=== PATIENT | male | born 1970 | race Caucasian/White ===

== ENCOUNTER → 2019-04-26 14:50 | Outpatient (BNVA) | payer OTHER, SELFPAY | PROVIDERS: Family Provider Internal Medicine; PCP Internal Medicine; Visit Provider Nurse Practitioner | DX: R05 Cough (principal); R50.9 Fever, unspecified | CPT/HCPCS: 87804 ==

== ENCOUNTER 2019-05-15 13:37 | Emergency (ER) | payer OTHER, SELFPAY ==
[2019-05-15 13:37] VITALS: PULSE 73; RESP 17; O2SAT 96
[2019-05-15 13:42] VITALS: BP 140/97; PULSE 73; RESP 18; TEMP 36.6; O2SAT 96; BMI 26.9
--- NOTE | 2019-05-15 13:53 | ED_ITS ---
Entered by Brie Mckeon, acting as scribe for Rohith Branham DO HPI - Back Pain/Injury General: Chief Complaint: Back Pain/Injury Stated Complaint: Back pain Time Seen by Provider: 05/15/19 13:44 History of Present Illness: HPI Narrative: 48yo male presents with back pain. He denies any loss of bowel or bladder, numbness, or weakness. Back pain was exacerbated when he bent over to waste picker a box. Associated symptoms: Deny abdominal pain, chills, dysuria, fatigue, fever(s), nausea, urinary urgency or vomiting Review of Systems Const: Denies: fever, chills, body aches, change in appetite, fatigue or malaise ENMT: Denies: throat pain, ear pain, nasal discharge or nasal congestion Card: Denies: chest pain, edema, shortness of breath on exertion or shortness of breath when lying down Resp: Denies: shortness of breath, productive cough or non-productive cough GI: Denies: abdominal pain, nausea, vomiting, vomiting blood, coffee grounds in vomit, diarrhea, constipation, bloating, blood in stool or black tarry stool : Denies: flank pain, painful urination, urinary frequency or urinary urgency Musc: Reports: back pain Skin/Breast: Denies: rash or itching PFSH ED PFSH: Social History (Updated 04/26/19 @ 14:49 by Bhavani Adams LPN) Smoking and tobacco status: never smoked Physical Exam Const: COMMON NORMALS: oriented x3 and alert GENERAL APPEARANCE: cooperative and comfortable NUTRITIONAL APPEARANCE: obese ORIENTATION/CONSCIOUSNESS: Yes awake, Yes oriented to person and Yes oriented to place Eye: COMMON NORMALS: PERRL, EOMs intact bilaterally, conjunctivae normal and no scleral icterus CONJUNCTIVA: Yes conjunctivae normal PUPIL: Yes PERRL Neck/C-Spine: COMMON NORMALS: full ROM, no lymphadenopathy, supple, no meningeal signs and thyroid normal THYROID: thyroid normal and asymmetrical Lymph: LYMPHATIC: no lymphadenopathy noted Resp: COMMON NORMALS: normal respiratory effort, no retractions, no use of accessory muscles and clear to auscultation bilaterally AUSCULTATION: clear to auscultation bilaterally Cardio: COMMON NORMALS: regular rate and regular rhythm RATE: regular rate RHYTHM: regular rhythm HEART SOUNDS: no murmurs GI: COMMON NORMALS: normal to inspection, nondistended, normoactive bowel sounds, soft to palpation and no hepatosplenomegaly PALPATION: Yes soft and Yes no hepatosplenomegaly : COMMON NORMALS: Yes no CVA tenderness BLADDER/KIDNEY EXAM: Yes no CVA tenderness Back/Pelvis: COMMON NORMALS: no CVA tenderness LUMBAR SPINE/LOWER BACK: Yes normal to inspection Extremity: COMMON NORMALS: no clubbing, cyanosis or edema, no calf tenderness and no pedal edema NARRATIVE EXTREMITY EXAM: negative straight leg raise Neuro: COMMON NORMALS: oriented x3 SENSORIUM/ORIENTATION: Yes alert, Yes oriented to person and Yes oriented to place MENINGEAL SIGNS: Yes no meningeal signs Skin: COMMON NORMALS: no rashes or lesions noted and skin turgor normal GENERAL SKIN EXAM: no rashes or lesions noted and turgor normal Course Vital Signs: Vital signs: Vital Signs Temperature 97.9 F 05/15/19 13:42 Pulse Rate 72 05/15/19 14:43 Respiratory Rate 16 05/15/19 14:43 Blood Pressure 130/84 05/15/19 14:43 Pulse Oximetry 96 05/15/19 14:43 Discharge Plan Discharge Patient Disposition: Home, Self-Care Clinical Impression: Acute lumbar back pain Condition: Stable Prescriptions: New diclofenac sodium 75 mg tablet,delayed release (DR/EC) 75 mg PO Q12H PRN (Reason: pain) Qty: 30 RF: 0 Skelaxin 800 mg tablet 800 mg PO TID PRN (Reason: muscle pain) Qty: 20 RF: 0 No Action omeprazole 20 mg capsule,delayed release(DR/EC) 20 mg PO DAILY RF: 0 alogliptin 12.5 mg tablet 12.5 mg PO DAILY RF: 0 Discharge Orders: Discharge Order (Routine); Ordered 05/15/19 Ordered By: Rohith Branham Referrals: Juni Mccarthy [Primary Care Provider] - Discharge Diet: Usual diet Discharge Activity: Increase activity as tolerated Activity Restrictions/Additional Instructions: Increase activity slowly. Follow-up with your primary care doctor if persists Discharge Date/Time: 05/15/19 14:49 Coding Level of Care Code ED Terrazzo Polisher for Chg Fwd Exam Comprehensive The documentation recorded by the Linda ridley Bailey Leadawn, accurately reflects the service I personally performed and the decisions made by Carrol carlos Curtis L, DO May 15, 2019 13:37
[2019-05-15] MEDS: ketorolac 60 mg/2 mL INJ IM (14:25)
[2019-05-15] MEDS: orphenadrine 30 mg/mL Inj 2 mL 60 MG IM (14:26)
[2019-05-15 14:43] VITALS: BP 130/84; PULSE 72; RESP 16; O2SAT 96
== END 2019-05-15 14:49 | disposition home or self-care (01) ==
LOC: ER 14:24
PROVIDERS: Emergency Provider Family Medicine; Family Provider Internal Medicine; PCP Internal Medicine
DX: M54.5 Low back pain (principal); E66.9 Obesity, unspecified; Z68.27 Body mass index [BMI] 27.0-27.9, adult
CPT/HCPCS: 96372; 99281; 99283; J1885; J2360

== ENCOUNTER 2022-07-02 10:08 | Emergency (ER) | payer OTHER, SELFPAY ==
[2022-07-02 10:24] VITALS: BP 171/94; PULSE 73; RESP 16; TEMP 36.6; O2SAT 99
--- NOTE | 2022-07-02 10:26 | ECG_ITS ---
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 Measurements Intervals [place] Rate: 67 P: 46 [place]: 156 QRS: 53 QRSD: 85 T: 79 QT: 371 QTc: 392 Interpretive Statements SINUS RHYTHM NONSPECIFIC T-WAVE ABNORMALITY INTERPRETATION BASED ON A DEFAULT AGE OF 40 YEARS No previous ECG available for comparison Electronically Signed On 07-02-2022 23:40:07 CDT by Tyree Villareal M.D. [id number]
--- NOTE | 2022-07-02 10:58 | XR_ITS ---
WS: [id number] EXAMINATION: XR chest 1V portable [id number] REASON FOR EXAM: chest pain COMPARISON: None available. ORDER DATE: 07/02/2022 11:00 AM TECHNIQUE: A single, portable frontal chest x-ray was obtained. X-RAY FINDINGS: The lungs are clear. Pleural spaces are clear. No pleural effusions or pneumothorax. Cardiomediastinal silhouette is normal. No evidence for pulmonary edema. Soft tissue and osseous structures are unremarkable. No tubes or lines are present. XR/XR chest 1V portable [id number] IMPRESSION: Unremarkable frontal portable chest x-ray.
--- NOTE | 2022-07-02 11:10 | W.ED.CHESTPA ---
HPI - Chest Pain General: Chief Complaint: Chest Pain Stated Complaint: Chest Pains, SOB, Fatigue Time Seen by Provider: 07/02/22 10:58 History of Present Illness: Patient presents to the ER with complaints of a nonradiating left-sided/substernal chest pressure starting about 5 days ago. Pain is intermittent in nature. Patient might have a mild increase in shortness of breath when the pain is there. There is nothing that makes the pain worse or better. Patient states he has had not had this pain before. Patient is a diabetic. Patient states he has no cardiac history. MD complaint: chest heaviness and chest discomfort Pertinent past history: other (Diabetes) Onset (ago): day(s) (5 days ago) Prior episodes: No Pain location: substernal and left chest Pain radiation: none Severity: mild Quality: aching and heaviness Relieving factors: nothing Exacerbating factors: nothing Associated symptoms: Reports dyspnea; Deny abdominal pain, fever(s), nausea, palpitations or vomiting Treatment prior to arrival: none Review of Systems General: Reports: 10 or more systems reviewed and unremarkable except in HPI and below Const: Denies: fever(s) or chills Eyes: Denies: change in vision ENMT: Denies: throat pain or odynophagia Card: Reports: chest pain; Denies: palpitations, irregular heart rhythm or edema Resp: Reports: dyspnea; Denies: productive cough or non-productive cough GI: Denies: abdominal pain, nausea, vomiting or diarrhea : Denies: flank pain or dysuria Musc: Denies: neck pain, back pain, extremity pain or extremity swelling [facility] ED PFSH: Medical History Lumbar back pain with radiculopathy affecting right lower extremity Social History Smoking and tobacco status: never smoked Physical Exam Const: COMMON NORMALS: no acute distress, average body habitus, patient oriented x3, no limitations, healthy appearing, alert and well nourished HENMT: COMMON NORMALS: normocephalic, atraumatic, hearing grossly normal bilaterally, external ears normal, Normal external nose present and moist oral mucous membranes HEAD & SCALP: normocephalic and atraumatic NOSE: Normal external nose present EXTERNAL EAR: Yes external ears normal Eye: COMMON NORMALS: Equal, round and reactive pupils present, EOMs intact bilaterally, conjunctivae normal and no scleral icterus CONJUNCTIVA: Yes conjunctivae normal PUPIL: Yes Equal, round and reactive pupils present Neck/C-Spine: COMMON NORMALS: full ROM, no lymphadenopathy, supple, no meningeal signs, no JVD and Thyroid normal THYROID: Thyroid normal Lymph: LYMPHATIC: no lymphadenopathy noted Chest: COMMONS NORMALS: normal inspection of the chest and normal palpation of entire chest wall Resp: COMMON NORMALS: normal respiratory effort, No retractions, No use of accessory muscles and clear to auscultation bilaterally AUSCULTATION: clear to auscultation bilaterally Cardio: COMMON NORMALS: no JVD, regular rhythm, S1 normal heart sound present, S2 normal heart sound present, No gallops present (Cardio), No clicks present (Cardio) and No murmurs present (Cardio) RHYTHM: regular rhythm HEART SOUNDS: S1 normal heart sound present and S2 normal heart sound present GI: COMMON NORMALS: Normal to inspection, nondistended, normoactive bowel sounds present, Soft to palpation, non-tender, No hepatosplenomegaly present and no masses PALPATION: Yes Soft to palpation and Yes No hepatosplenomegaly present Extremity: COMMON NORMALS: normal to inspection Neuro: COMMON NORMALS: patient oriented x3 SENSORIUM/ORIENTATION: Yes alert MENINGEAL SIGNS: Yes no meningeal signs Course Vital Signs: Vital signs: Vital Signs Temperature 97.9 F 07/02/22 10:24 Pulse Rate 73 07/02/22 10:24 Respiratory Rate 17 07/02/22 13:56 Blood Pressure 171/94 07/02/22 10:24 Pulse Oximetry 96 07/02/22 13:56 Oxygen Delivery Me thod 07/02/22 13:56 MDM - Chest Pain Medical Decision Making Patient presents to the ER with complaints of nonradiating substernal, left-sided chest pain that is intermittent over the last 5 days. Patient complains of intermittent shortness of breath when the pain is present. Patient states that there is nothing that brings it on or makes it go away. Patient is a diabetic. Patient has no heart history. Upon further physical exam of the patient as well as review of lab work which included CBC CMP cardiac enzymes EKG and chest x-ray is felt this is noncardiac in nature due to benign appearing EKG and 2 sets of cardiac troponins with a negative delta. Patient is not currently having chest pain in the ER. Patient will be referred back to his family practice physician who may do further evaluation treatment that may consist of cardiac stress test and/or referral to a public address system installer. Differential Diagnosis Unlikely acute massive pulmonary embolism, acute respiratory failure, acute myocardial infarction, cardiac arrest or sudden cardiac Medical Records I reviewed the patient's medical records. Lab Data I reviewed the patient's lab results. 07/02/22 11:20 07/02/22 11:20 Radiology Impressions Chest X-Ray 07/02/22 10:58 IMPRESSION: Unremarkable frontal portable chest x-ray. Laboratory Results WBC 6.7 10^3/uL (4.0-10.0) 07/02/22 11:20 RBC 5.47 10^6/uL (4.1-5.3) H 07/02/22 11:20 Hgb 16.3 g/dL (11.7-16.6) 07/02/22 11:20 Hct 47.3 % (42.0-52.0) 07/02/22 11:20 MCV 86.5 fl (80-94) 07/02/22 11:20 MCH 29.8 pg (28.0-34.0) 07/02/22 11:20 MCHC 34.5 g/dL (30.0-36.0) 07/02/22 11:20 RDW 11.8 % (12.1-15.1) L 07/02/22 11:20 Plt Count 238 10^3/cmm (130-400) 07/02/22 11:20 MPV 9.4 fL (7.4-10.4) 07/02/22 11:20 Neut % (Auto) 64.1 % 07/02/22 11:20 Lymph % (Auto) 25.0 % 07/02/22 11:20 Barnes % (Auto) 7.7 % 07/02/22 11:20 Eos % (Auto) 2.4 % 07/02/22 11:20 Baso % (Auto) 0.5 % 07/02/22 11:20 Neut # (Auto) 4.27 10^3/uL (1.8-7.7) 07/02/22 11:20 Lymph # (Auto) 1.7 10^3/uL (0.8-4.8) 07/02/22 11:20 Barnes # (Auto) 0.5 10^3/uL (0.2-0.9) 07/02/22 11:20 Eos # (Auto) 0.2 10^3/uL (0.0-0.8) 07/02/22 11:20 Baso # (Auto) 0.0 10^3/uL (0.0-0.1) 07/02/22 11:20 Nucleated RBC % (auto) 0 % 07/02/22 11:20 Nucleated RBCs # 0.0 /100WBC 07/02/22 11:20 PT 12.60 SECONDS (12.1-14.9) 07/02/22 11:20 INR 0.92 (0.8-1.2) 07/02/22 11:20 Sodium 139 mmol/L (136-145) 07/02/22 11:20 Potassium 4.1 mmol/L (3.5-5.1) 07/02/22 11:20 Chloride 100 mmol/L (98-107) 07/02/22 11:20 Carbon Dioxide 26 mmol/L (22-29) 07/02/22 11:20 Anion Gap 17.1 (5-19) 07/02/22 11:20 BUN 12 mg/dL (6-20) 07/02/22 11:20 Creatinine 0.8 mg/dL (0.7-1.2) 07/02/22 11:20 GFR Calculation 102.3 mL/min (90-130) 07/02/22 11:20 Glucose 173 mg/dL (65-115) H 07/02/22 11:20 Calculated Osmolality 292 mOsm/kg (285-295) 07/02/22 11:20 Calcium 9.2 mg/dL (8.5-10.5) 07/02/22 11:20 Total Bilirubin 1.2 mg/dL (0.15-1.2) 07/02/22 11:20 AST 26 U/L (0-40) 07/02/22 11:20 ALT 31 U/L (0-41) 07/02/22 11:20 Alkaline Phosphatase 79 U/L (40-130) 07/02/22 11:20 Troponin T Baseline 10 ng/L (0-15) 07/02/22 11:20 Troponin T 120 Minute 9.88 ng/L (0-15) 07/02/22 13:20 Delta Troponin T -0.12 ABS# (0-10) L 07/02/22 13:20 NT-Pro-B Natriuret Pep 36 pg/mL (0-125) 07/02/22 11:20 Total Protein 7.2 g/dL (6.6-8.7) 07/02/22 11:20 Albumin 4.3 g/dL (3.5-5.2) 07/02/22 11:20 Globulin 2.9 g/dL (1.3-4.6) 07/02/22 11:20 EKG Data EKG 1: I personally reviewed and interpreted this EKG as follows: EKG interpretation date: 07/02/22 EKG interpretation time: 13:15 Prior EKG tracings: not available for review Interpretation: EKG showed ventricular rate of 61 bpm, normal sinus rhythm, DE interval 160, QRS duration 90, QTc of 390, possible right ventricular conduction delay, nonspecific ST-T wave abnormalities. Discharge Plan Discharge Patient Disposition: Home Clinical Impression: Atypical chest pain Condition: Stable Prescriptions: No Action omeprazole 20 mg capsule,delayed release(DR/EC) 20 mg PO DAILY alogliptin 12.5 mg tablet 12.5 mg PO DAILY pravastatin PO DAILY methocarbamol 500 mg tablet 500 mg PO TID PRN (Reason: muscle spasm) Qty: 30 1RF tramadol 50 mg tablet 50 mg PO TID PRN (Reason: pain) Qty: 30 0RF Discharge Orders: Discharge ED (Routine); Ordered 07/02/22 Ordered By: Capo Alegria Referrals: Nallely Farah MD [Primary Care Provider] - 1 week Patient Instructions: Chest Pain (ED) Coding Level of Care Code ED Green House Manager for Chg Herve
[2022-07-02 11:28] LABS: Basophils % 0.5 %; Eosinophils # 0.2 10^3/uL (0.0-0.8); Eosinophils % 2.4 %; Hematocrit 47.3 % (42.0-52.0); Hemoglobin 16.3 g/dL (11.7-16.6); Lymphocytes # 1.7 10^3/uL (0.8-4.8); Mean Corpuscular HGB Conc 34.5 g/dL (30.0-36.0); Mean Corpuscular Hemoglobin 29.8 pg (28.0-34.0); Mean Corpuscular Volume 86.5 fl (80-94); Mean Platelet Volume 9.4 fL (7.4-10.4); Monocytes # 0.5 10^3/uL (0.2-0.9); Monocytes % 7.7 %; Neutrophils # 4.27 10^3/uL (1.8-7.7); Neutrophils % 64.1 %; Nucleated Red Blood Cells % 0 %; Platelet Count 238 10^3/cmm (130-400); Red Blood Count 5.47 10^6/uL (4.1-5.3); Red Cell Distribution Width 11.8 % (12.1-15.1); White Blood Count 6.7 10^3/uL (4.0-10.0)
[2022-07-02 11:47] LABS: INR 0.92 (0.8-1.2)
[2022-07-02 11:57] LABS: Troponin(5th) Baseline 10 ng/L (0-15)
[2022-07-02 12:07] LABS: Alanine Aminotransferase 31 U/L (0-41); Albumin Level 4.3 g/dL (3.5-5.2); Alkaline Phosphatase 79 U/L (40-130); Anion Gap 17.1 (5-19); Aspartate Amino Transferase 26 U/L (0-40); Blood Urea Nitrogen 12 mg/dL (6-20); Calcium 9.2 mg/dL (8.5-10.5); Carbon Dioxide 26 mmol/L (22-29); Chloride 100 mmol/L (98-107); Creatinine Clr Calc Pharmacy 122.3019; Globulin 2.9 g/dL (1.3-4.6); Glomerular Filtration Rate 102.3 mL/min (90-130); Glucose 173 mg/dL (65-115); NT Pro B Type Natriuretic Pept 36 pg/mL (0-125); Osmolality Calculated 292 mOsm/kg (285-295); Potassium 4.1 mmol/L (3.5-5.1); Sodium 139 mmol/L (136-145); Total Bilirubin 1.2 mg/dL (0.15-1.2); Total Protein 7.2 g/dL (6.6-8.7)
--- NOTE | 2022-07-02 13:15 | ECG_ITS ---
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 Measurements Intervals [place] Rate: 61 P: 24 [place]: 160 QRS: 28 QRSD: 90 T: 79 QT: 386 QTc: 391 Interpretive Statements SINUS RHYTHM POSSIBLE RIGHT VENTRICULAR CONDUCTION DELAY [RSR (QR) IN V1/V2] NONSPECIFIC ST & T-WAVE ABNORMALITY Compared to ECG 07/02/2022 10:22:38 No significant changes Electronically Signed On 07-02-2022 23:49:05 CDT by Tyree Villareal M.D. [email or web address]
[2022-07-02 13:56] VITALS: RESP 17; O2SAT 96
[2022-07-02 14:01] LABS: Troponin 5 2HR 9.88 ng/L (0-15)
[2022-07-02 14:05] LABS: Troponin 5 2HR Delta -0.12 ABS# (0-10)
== END 2022-07-02 14:42 | disposition home or self-care (01) ==
PROVIDERS: Emergency Provider Emergency Medicine; PCP Family Medicine
DX: R07.89 Other chest pain (principal)
CPT/HCPCS: 36415; 71045; 80053; 83880; 84484; 85025; 85610; 93005; 99285

== ENCOUNTER 2024-02-25 16:36 | Outpatient (CLI) | payer OTHER, SELFPAY ==
--- NOTE | 2024-02-25 16:41 | CTR_ITS ---
PROCEDURE INFORMATION: Exam: CT Maxillofacial Without Contrast, Sinus Exam date and time: 02/25/2024 4:54 PM Age: 53 years old Clinical indication: Patient HX: Chronic rhinitis, RT side nose TECHNIQUE: Imaging protocol: CT Maxillofacial without contrast. Focus on the sinuses. Radiation optimization: All CT scans at this facility use at least one of these dose optimization techniques: automated exposure control; mA and/or kV adjustment per patient size (includes targeted exams where dose is matched to clinical indication); or iterative reconstruction. COMPARISON: No relevant prior studies available. RADIATION DOSE METRICS: Total DLP (mGy-cm): 368.7 FINDINGS: Frontal sinuses: No air-fluid levels. Ethmoid sinuses: No air-fluid levels. Sphenoid sinuses: No air-fluid levels. Maxillary sinuses: Conventional anatomy of the sinuses. No appreciable mucosal mass, drainable abscess, or ostiomeatal unit blockage bilaterally, specifically on the right side. Note made of asymmetric mild edematous appearance of the right middle and inferior turbinates. Small polyp/mucous retention cyst in the inferior right maxillary sinus. May be odontogenic in etiology. Orbital cavities: Unremarkable orbits. Bones: See Soft tissues finding. Soft tissues: No acute osseous or soft tissue abnormality. Mastoid air cells: Mucoperiosteal thickening in the paranasal sinuses. Mastoid air cells are clear. Brain: Imaged intracranial structures are grossly normal as partially seen. CT/CT sinus wo con* [id number] IMPRESSION: Asymmetric mild edematous appearance of the right middle and inferior turbinates. Consistent with history of rhinitis.
== END 2024-02-25 16:37 | disposition home or self-care (01) ==
LOC: RAD 16:36
PROVIDERS: PCP Family Medicine; Visit Provider Otolaryngology
DX: J31.0 Chronic rhinitis (principal)
CPT/HCPCS: 70486

== ENCOUNTER → 2024-06-15 07:56 | Outpatient (BNVA) | payer OTHER, SELFPAY | PROVIDERS: PCP Family Medicine; Referring Provider Family Medicine; Visit Provider Nurse Practitioner Family | DX: M54.2 Cervicalgia (principal) | CPT/HCPCS: 99214 ==

== ENCOUNTER → 2024-06-22 07:45 | Outpatient (BNVA) | payer OTHER, SELFPAY | PROVIDERS: PCP Family Medicine; Visit Provider Nurse Practitioner Family | DX: M79.18 Myalgia, other site (principal); M54.2 Cervicalgia | CPT/HCPCS: 20553; 99214; J1010; J3490 ==

== ENCOUNTER → 2024-07-06 07:51 | Outpatient (BNVA) | payer OTHER, SELFPAY | PROVIDERS: PCP Family Medicine; Visit Provider Nurse Practitioner Family | DX: M54.2 Cervicalgia (principal) | CPT/HCPCS: 99213 ==

== ENCOUNTER 2024-07-09 06:50 | Outpatient (RCR) | payer OTHER, SELFPAY | END 2024-07-22 23:59 | disposition home or self-care (01) | LOC: SPT 06:50 | PROVIDERS: Visit Provider Family Medicine | DX: M54.2 Cervicalgia (principal) | CPT/HCPCS: 97110; 97161; G0283 ==

== ENCOUNTER 2024-07-24 05:35 | Outpatient (RCR) | payer OTHER, SELFPAY | END 2024-08-22 23:59 | disposition home or self-care (01) | LOC: SPT 05:35 | PROVIDERS: PCP Family Medicine; Visit Provider Family Medicine | DX: M54.2 Cervicalgia (principal) | CPT/HCPCS: 97110; 97140 ==

== ENCOUNTER → 2024-08-05 08:07 | Outpatient (BNVA) | payer OTHER, SELFPAY | PROVIDERS: PCP Family Medicine; Visit Provider Nurse Practitioner Family | DX: M54.16 Radiculopathy, lumbar region (principal); M54.2 Cervicalgia | CPT/HCPCS: 99214 ==

== ENCOUNTER 2024-08-23 05:00 | Outpatient (RCR) | payer OTHER, SELFPAY | END 2024-09-21 23:59 | disposition home or self-care (01) | LOC: SPT 05:00 | PROVIDERS: PCP Family Medicine; Visit Provider Family Medicine | DX: M54.2 Cervicalgia (principal) | CPT/HCPCS: 97110; 97140 ==

== ENCOUNTER → 2024-09-04 08:09 | Outpatient (BNVA) | payer OTHER, SELFPAY | PROVIDERS: PCP Family Medicine; Visit Provider Nurse Practitioner Family | DX: M54.2 Cervicalgia (principal) | CPT/HCPCS: 99214 ==

== ENCOUNTER 2024-09-22 05:00 | Outpatient (RCR) | payer OTHER, SELFPAY | END 2024-09-29 09:31 | disposition home or self-care (01) | LOC: SPT 05:00 | PROVIDERS: PCP Family Medicine; Visit Provider Family Medicine | DX: M54.2 Cervicalgia (principal) | CPT/HCPCS: 97110; 97140 ==

== ENCOUNTER → 2024-10-06 09:48 | Outpatient (BNVA) | payer OTHER, SELFPAY | PROVIDERS: PCP Family Medicine; Visit Provider Nurse Practitioner Family | DX: M54.2 Cervicalgia (principal) | CPT/HCPCS: 72050; 99214 ==

== ENCOUNTER 2024-10-28 06:51 | Outpatient (RCR) | payer OTHER, SELFPAY | END 2024-11-22 23:59 | disposition home or self-care (01) | LOC: SPT 06:51 | PROVIDERS: Visit Provider Family Medicine | DX: M25.562 Pain in left knee (principal) | CPT/HCPCS: 97110; 97161 ==

== ENCOUNTER 2024-11-23 05:00 | Outpatient (RCR) | payer OTHER, SELFPAY | END 2024-12-17 08:24 | disposition home or self-care (01) | LOC: SPT 05:00 | PROVIDERS: Visit Provider Family Medicine | DX: M25.562 Pain in left knee (principal) | CPT/HCPCS: 97110; 97530 ==

== ENCOUNTER → 2024-11-24 11:38 | Outpatient (BNVA) | payer OTHER, SELFPAY | PROVIDERS: Visit Provider Surgery | DX: Z12.11 Encounter for screening for malignant neoplasm of colon (principal) | CPT/HCPCS: 99204 ==

== ENCOUNTER 2024-12-10 07:42 | Day surgery (SDC) | payer OTHER, SELFPAY ==
[2024-12-10 07:54] VITALS: BMI 30.7
[2024-12-10 08:12] VITALS: BP 146/94; PULSE 75; RESP 16; TEMP 36.2; O2SAT 96
--- NOTE | 2024-12-10 08:12 | W.PM.OPSUD ---
Surgery/Procedure H&P Update DATE OF PROCEDURE: December 10, 2024 DATE H&P PERFORMED: 11/24/24 H&P UPDATE INFORMATION: I have reviewed H&P completed within last 30 days, I have examined patient prior to procedure, No changes to prior documentation, H&P is in [facility] EMR on date indicated and Risks and benefits of the procedure reviewed PLANNED PROCEDURE: Operation Date: 12/10/24 09:15 Proposed Procedures p Colonoscopy [id number] G0121 Z12.11(Not Applicable) - Pop Arciniega MD
--- NOTE | 2024-12-10 08:53 | ANES.PREANE2 ---
Pre-Anesthetic Assessment Height/Weight: Height 1.65 m Weight 83.915 kg Temp Pulse Resp BP Pulse Ox O2 Del Method 97.2 F L 75 16 146/94 96 Room Air 12/10/24 08:12 12/10/24 08:12 12/10/24 08:12 12/10/24 08:12 12/10/24 08:12 12/10/24 08:12 Preop Diagnosis: screening Operation Date: 12/10/24 09:15 Proposed Procedures p Colonoscopy [id number] G0121 Z12.11(Not Applicable) - Pop Arciniega MD Familial anesthetic complications: PONV Was Beta Luis Angel taken within 24 hours: N/A Was Clonidine taken within 24 hours: N/A Last intake: Intake Last Liquid Date 12/09/24 Last Liquid Time 18:30 Last Solid Date 12/08/24 Last Solid Time 20:00 Social No alcohol and No tobacco Exam alert and oriented x 3 Airway Submandibular: within normal limits Cervical ROM: within normal limits Mallampati: Class I Dentition: full History/ROS No significant history except as noted Pulmonary None reported CV/HEM None reported None reported Hepatic None reported GI Gastroesophageal Reflux Disease Metabolic Diabetes Mellitus and Hyperlipidemia [facility] [place] Lower Back Pain Neuropsych None reported Anesthetic Plan ASA status: 3 Anesthesia: Anesthesia Evaluation and MAC Risk of > 500 ml blood loss (7ml/kg in children): No Medications/Allergies Home Medications ?Medication ?Instructions ?Recorded ?Confirmed ?Last Taken ?Type omeprazole 20 mg capsule,delayed 20 mg PO DAILY 04/26/19 12/10/24 12/10/24 History release pravastatin 20 mg PO DAILY 06/01/21 12/10/24 12/08/24 History glipizide 10 mg tablet 10 mg PO BID 06/15/24 12/10/24 12/08/24 History sitagliptin 25 mg tablet (Zituvio) 25 mg PO DAILY 06/22/24 12/10/24 12/08/24 History baclofen 10 mg tablet 10 mg PO BID PRN muscle spasm #60 10/06/24 12/10/24 Unknown Rx tabs ondansetron 8 mg disintegrating 8 mg PO Q8H PRN nausea and 12/01/24 12/10/24 Unknown Rx tablet vomiting #3 tabs Allergies Allergy/AdvReac Type Severity Reaction Status Date / Time No Known Allergies Allergy Verified 12/10/24 07:52 Current Medications Generic Name Dose Route Start Last Admin Trade Name Freq PRN Reason Stop Dose Admin Sodium Chloride 1,000 mls @ 15 mls/hr 12/10/24 07:59 12/10/24 08:13 Sodium Chloride 0.9% IV 12/11/24 07:58 15 mls/hr .Q24H PRN Administration COLONOSCOPY FLUIDS PFSH Anesthesia Medical History (Updated 11/24/24 @ 11:53 by Nataly Marcos RN) Diabetes mellitus Lumbar back pain with radiculopathy affecting right lower extremity Surgical History (Updated 11/24/24 @ 11:52 by Nataly Marcos RN) History of knee replacement procedure of right knee Social History Smoking and tobacco/nicotine status: never used tobacco/nicotine
--- NOTE | 2024-12-10 09:23 | PC.NURSE ---
cecum time 0930
[2024-12-10 09:48] VITALS: BP 109/71; PULSE 71; RESP 16; TEMP 36.1; O2SAT 94
--- NOTE | 2024-12-10 10:11 | ANE.PACU2 ---
Inpatient post-anesthesia follow up: Airway intact: Yes Vital signs: Temperature 97 F Pulse Rate 71 Respiratory Rate 16 Blood Pressure 109/71 Pulse Oximetry 94 Oxygen Delivery Me thod Room Air Oxygen Flow Rate Fraction of Inspir ed Oxygen Hydration adequate: Yes Nausea and vomiting: No Pain level: 1 Mental status: Baseline
== END 2024-12-10 10:10 | disposition home or self-care (01) ==
PROVIDERS: PCP Family Medicine; Visit Provider Surgery
PROC: 0DJD8ZZ Inspection of Lower Intestinal Tract, Via Natural or Artificial Opening Endoscopic (ICD-10-PCS; CPT 45378; principal; 2024-12-10 09:15)
DX: Z12.11 Encounter for screening for malignant neoplasm of colon (principal); D12.8 Benign neoplasm of rectum; K21.9 Gastro-esophageal reflux disease without esophagitis; E11.9 Type 2 diabetes mellitus without complications; E78.5 Hyperlipidemia, unspecified
CPT/HCPCS: 36416; 45380; 82962; 88305; J2704; J7030

== ENCOUNTER → 2024-12-23 08:22 | Outpatient (BNVA) | payer OTHER, SELFPAY | PROVIDERS: PCP Family Medicine; Visit Provider Surgery | DX: Z09 Encounter for follow-up examination after completed treatment for conditions other than malignant neoplasm (principal) | CPT/HCPCS: 99213 ==